=== PATIENT | female | born 1995 | race American Indian/Alaskan Native ===

== ENCOUNTER 2018-03-29 11:21 | Emergency (ER) | payer SELFPAY ==
[2018-03-29 11:27] VITALS: BP 103/77
--- NOTE | 2018-03-29 12:29 | Emergency Department Report ---
ED Female HPI - General Chief complaint: Urogenital-Female Stated complaint: CYST Source: patient Mode of arrival: Ambulatory Limitations: No Limitations - History of Present Illness Initial comments: This is a 22-year-old -[place] female who presents with swelling to right labia for 5 days. She states she went to urgent care last Wednesday and was started on Bactrim for Bartholin's cyst. Patient states she is taking medication as prescribed and to 6 packs when no improvement of symptoms. She reports swelling and pain has increased. She reports pain as 10 out of 10 on pain scale and worse with sitting and movement. Pain is sharp and constant. She admits to a past history of Bartholin's which drained independently. She denies fever, abdominal pain, vaginal discharge, frequency, urgency, and dysuria. MD Complaint: other (vaginal pain on left labia) Onset/Timin -: days(s) Location: labia Radiation: non-radiating Severity: severe Severity scale (0 -10): 8 Quality: sharp Consistency: intermittent Improves with: none Worsens with: movement, other (sitting) Are you Now?: No Last Menstrual Period: 03/05/18 EDC: 12/10/18 - Related Data Sexually active: Yes Previous Rx's Medication Instructions Recorded Last Taken Type Ibuprofen [Motrin 800 MG tab] 800 mg PO Q8HR PRN #15 tablet 03/29/18 Unknown Rx Allergies Allergy/AdvReac Type Severity Reaction Status Date / Time No Known Allergies Allergy Verified 03/29/18 16:55 ED Review of Systems ROS: Stated complaint: CYST Other details as noted in HPI Constitutional: denies: chills, fever Respiratory: denies: cough, shortness of breath, wheezing Cardiovascular: denies: chest pain, palpitations Gastrointestinal: denies: abdominal pain, nausea, diarrhea Skin: lesions (abscess of right labia). denies: rash Neurological: denies: headache, weakness, paresthesias Psychiatric: denies: anxiety, depression ED Past Medical Hx - Past Medical History Previous Medical History?: No - Surgical History Past Surgical History?: No - Social History Smoking Status: Never Smoker Substance Use Type: None - Medications Home Medications: Home Medications Medication Instructions Recorded Confirmed Last Taken Type Ibuprofen [Motrin 800 MG tab] 800 mg PO Q8HR PRN #15 tablet 03/29/18 Unknown Rx ED Physical Exam - General Limitations: No Limitations General appearance: alert, in no apparent distress - Respiratory Respiratory exam: Present: normal lung sounds bilaterally. Absent: respiratory distress - Cardiovascular Cardiovascular Exam: Present: regular rate, normal rhythm. Absent: systolic murmur, diastolic murmur, rubs, gallop - GI/Abdominal GI/Abdominal exam: Present: soft, normal bowel sounds - External exam: Present: erythema, swelling, lesions (1 cm erythematous fluctuant nodule to right labia majora, tenderness, no active bleeding). Absent : lacerations, ecchymosis, bleeding Speculum exam: Present: normal speculum exam - Neurological Exam Neurological exam: Present: alert, oriented X3 - Psychiatric Psychiatric exam: Present: normal affect, normal mood - Skin Skin exam: Present: warm, dry, intact, normal color. Absent: rash ED Course Vital Signs 03/29/18 11:24 Temperature 97.8 F Pulse Rate 134 H Respiratory 18 Rate Blood Pressure 103/77 O2 Sat by Pulse 98 Oximetry ED Medical Decision Making - Medical Decision Making This is a 22 y.o. female that presents with a painful abscess to left labia majora for 5 days. Prior history of prior abscess. Patient is stable and examined by me. No acute signs of distress noted. Given Toradol 30 mg IM and tetanus vaccine once in ER. I&D refer to note. Discussed plan to start ibuprofen with patient. Instructed to continue taking Bactrim and Flagyl prescribed for a primary care provider. Educated patient and family on follow up plan to have packing removed and wound reassessed in 2-3 days. Patient agrees to ED plan of care. Discharged home and follow up with PCP in 2-3 days. Critical care attestation.: If time is entered above; I have spent that time in minutes in the direct care of this critically ill patient, excluding procedure time. ED Disposition Clinical Impression: Bartholin's cyst Disposition: TO HOME OR SELFCARE Is pt being admited?: No Does the pt Need Aspirin: No Condition: Stable Instructions: Bartholin Cyst (ED), Incision and Drainage (ED) Additional Instructions: Keep packing in place for 2-3 days. Return to ER or f/u with PCP to have packing removed and wound reassessed. Complete full round of bactrim DS antibiotic as prescribed from primary care provider. Follow up with PCP or ER in 2-3 days. Return to ER if foul smelling discharge, swelling, or severe pain to wound. Prescriptions: Ibuprofen [Motrin 800 MG tab] 800 mg PO Q8HR PRN #15 tablet PRN Reason: Pain , Severe (7-10) Referrals: [facility] [Outside] - 3-5 Days [facility] [Outside] - 3-5 Days [facility] [Outside] - 3-5 Days Forms: Work/School Release Form(ED) Time of Disposition: 14:32 Print Language: ALBANIAN
[2018-03-29] MEDS ORDERED: XYLOCAINE 2% INFILTRATI ONE (12:30)
[2018-03-29] MEDS ORDERED: TORADOL IM ONE (12:30)
[2018-03-29] MEDS ORDERED: BOOSTRIX IM ONE (15:08)
== END 2018-03-29 15:25 | disposition home or self-care (01) ==
LOC: ED 11:21
DX: N75.0 Cyst of Bartholin's gland (principal)
CPT/HCPCS: 56420; 90715; 96372; 99283; J1885; 90471